=== PATIENT | female | born 2000 | race Caucasian/White ===

== ENCOUNTER 2021-12-27 20:59 | Emergency (ER) | payer SELFPAY ==
--- NOTE | ~2021-12-27 | XR_ITS ---
EXAMINATION: XR chest 2V DATE: 12/27/2021 23:37 INDICATION: Cough. Sore throat. TECHNIQUE: Frontal and lateral views of the chest were obtained. COMPARISON: None. FINDINGS: The chest demonstrates clear lungs without pneumonia, pleural effusion, or pneumothorax. Th e heart size is normal. IMPRESSION: 1. No acute cardiopulmonary disease. Reviewed, dictated and finalized at location A.
[2021-12-27 21:08] VITALS: BP 134/75; PULSE 95; RESP 16; TEMP 36.9; O2SAT 99
--- NOTE | 2021-12-27 23:24 | ED.URI ---
HPI - URI/Sore Throat General Chief Complaint: Upper Respiratory Infection Stated Complaint: cough, headache Time Seen by Provider: 12/27/21 23:03 Source: patient Mode of arrival: ambulatory Limitations: no limitations History of Present Illness HPI Narrative: Patient is a 21-year-old female who presents to the ED with c/o flu-like symptoms for the past 4 days. Patient reports having recent cough, congestion, sore throat, wheezing, headache, myalgias, fatigue which have progressively worsened over the last 4 days. 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 Denies any known fever. No abdominal pain, nausea, vomiting, urinary symptoms, chest pain, shortness of breath. Patient is COVID and flu vaccinated. Related Data Allergies Allergy/AdvReac Type Severity Reaction Status Date / Time No Known Allergies Allergy Verified 12/28/21 00:48 Review of Systems Review of Systems: CONSTITUTIONAL: Reports fatigue. Denies fever, chills. ENT: Reports rhinorrhea, congestion, sore throat. Denies otalgia. CARDIOVASCULAR: Denies chest pain. RESPIRATORY: Reports cough, wheezing. Denies dyspnea. GASTROINTESTINAL: Denies abdominal pain, nausea, vomiting, or diarrhea. GENITOURINARY: Denies dysuria or hematuria. MUSCULOSKELETAL: Reports myalgias. Denies back pain, joint pain. NEUROLOGIC: Reports BRIGGS. Denies numbness, or weakness. All systems reviewed & are unremarkable except as noted in HPI and below PMFSH Past Medical History Medical History (Updated 12/28/21 @ 01:43 by Madhuri Nelson PA-C) No pertinent past medical history Surgical History Surgical History (Updated 12/28/21 @ 01:43 by Madhuri Nelson PA-C) No pertinent past surgical history Social History Social History (Updated 12/28/21 @ 01:44 by Madhuri Nelson PA-C) Smoking status: Never smoker Exam Narrative: GENERAL: Well appearing, well-nourished, non-toxic, in no acute distress. HEAD: Normocephalic, atraumatic. NOSE: Normal, no drainage. THROAT: Pharynx clear, no exudate. Minimal erythema to posterior pharynx. MMs moist. NECK: Supple. No adenopathy, no masses. RESPIRATORY: Airway patent, respirations nonlabored. Clear to auscultation bilaterally, no rales, rhonchi, wheezing. CARDIOVASCULAR: Regular rate and rhythm without murmurs, rubs, or gallops. Radial pulses 2+ and equal bilaterally. MUSCULOSKELETAL: Moves all extremities. Strength/ROM intact without gross deformities. SKIN: Warm, dry, normal color. No rashes. NEURO: A&O X3. Speech clear. Cranial nerves II-XII grossly intact. Steady gait. No ataxic movements. PSYCHIATRIC: Appropriate mood and affect. Normal interaction. Course Vital Signs Vital signs: Vital Signs Temperature 98.4 F 12/27/21 21:08 Pulse Rate 95 12/27/21 21:08 Respiratory Rate 16 12/27/21 21:08 Blood Pressure 134/75 12/27/21 21:08 Pulse Oximetry 99 12/27/21 21:08 Temperature 98.4 F 12/27/21 21:08 Pulse Rate 92 12/27/21 23:28 Respiratory Rate 18 12/27/21 23:28 Blood Pressure 129/84 12/27/21 23:28 Pulse Oximetry 98 12/27/21 23:35 MDM - URI/Sore Throat MDM Narrative Medical decision making narrative: Patient presented to ED with 4-day history of flulike symptoms. Vital signs stable upon arrival. Afebrile. Clinical examination fairly unremarkable. No wheezing heard on auscultation. Laboratory evaluation notable for minimal elevation of white blood cell count at 10.4. No anemia. No significant electrolyte abnormality. Good kidney function. No transaminitis. UA without signs of infection. EKG without acute findings. Chest x-ray without signs of pneumonia. Influenza negative. COVID-negative. Strep negative. Patient feeling better with Toradol. Discussed findings with her and that she likely has a viral upper respiratory infection. Recommended she continue taking [id number] cough and cold medicines. Rubio Lentz will be sent to pharmacy for cough. Advised patient to
[2021-12-27 23:28] VITALS: BP 129/84; PULSE 92; RESP 18; O2SAT 99
[2021-12-27 23:35] VITALS: O2SAT 98
--- NOTE | 2021-12-27 23:39 | ECG_ITS ---
Measurements Intervals [place] Rate: 93 P: 11 [place]: 152 QRS: 74 QRSD: 86 T: 36 QT: 352 QTc: 438 Interpretive Statements SINUS RHYTHM NO PREVIOUS ECG AVAILABLE FOR COMPARISON Electronically Signed On 12-28-2021 20:46:08 CDT by Barbi Zhao M.D.
[2021-12-27 23:54] LABS: Basophils Percent Auto 0.3 % (0.2-1.2); Eosinophils Absolute Auto 0.6 K/mm3 (0-0.3); Eosinophils Percent Auto 5.5 % (0-4.4); Hematocrit 38.1 % (37.0-47.0); Hemoglobin 12.3 g/dL (12.0-15.0); Immature Granulocyte Absolute 0.03 K/mm3 (0.00-0.031); Immature Granulocyte Percent A 0.3 % (0-0.5); Lymphocytes Absolute Auto 2.56 K/mm3 (0.9-3.2); Lymphocytes Percent Auto 24.5 % (18.3-44.2); Mean Corpuscular HGB Conc 32.3 g/dl (32-36); Mean Corpuscular Hemoglobin 28.7 pg (26-34); Mean Corpuscular Volume 88.8 fl (80-100); Mean Platelet Volume 9.5 fl (7.4-10.4); Monocytes Absolute Auto 0.9 K/mm3 (0.1-0.6); Monocytes Percent Auto 8.2 % (2.6-8.5); Neutrophils Absolute Auto 6.4 K/mm3 (1.3-6.7); Neutrophils Percent Auto 61.2 % (45.5-73.1); Platelet Count Result 277 k/mm3 (150-375); Red Blood Count 4.29 M/mm3 (4.2-5.4); Red Cell Distribution Width 12.8 % (11.5-14.5); White Blood Count 10.4 K/mm3 (4.5-10.0)
[2021-12-28 00:14] LABS: Alanine Aminotransferase 19 U/L (4-35); Albumin Level 4.1 g/dL (3.5-5.1); Alkaline Phosphatase 65 U/L (38-126); Anion Gap 7 mmol/L (8-16); Aspartate Amino Transferase 31 U/L (14-36); Bilirubin,Total 0.5 mg/dL (0.2-1.3); Blood Urea Nitrogen 11 mg/dL (7-17); Calcium 8.6 mg/dL (8.4-10.2); Carbon Dioxide 28 mmol/L (22-30); Chloride 103 mmol/L (98-107); Estimated CRCL calculation 153 ml/min; Estimated Glomerular Filt Rate > 60; Glucose 97 mg/dL (65-110); Potassium 3.7 mmol/L (3.4-5.0); Sodium 138 mmol/L (137-145)
[2021-12-28 00:29] LABS: Add Urine Microscopic? YES; Appearance Urine Clear (Clear); Bilirubin Urine Negative (Negative); Blood Urine 2+ (Negative); Color Urine Yellow (Yellow); Glucose Urine UA Negative (Negative); Ketones Urine Negative (Negative); Leukocyte Esterase Ur Negative LEU/UL (Negative); Mucus Urine Rare /lpf; Nitrate Urine Negative (Negative); Protein Urine Negative (Negative); Specific Grav Ur 1.024 (1.001-1.035); Squamous Epithelial Cell Urine Few /hpf (Few); Urobilinogen Urine Negative mg/dL (<2.0); WBC Urine 0-3 /hpf
[2021-12-28 00:34] LABS: Influenza A QL RT-PCR Negative (Negative); Influenza B QL RT-PCR Negative (Negative); SARS-CoV-2 RNA PCR Negative
[2021-12-28] MEDS: KETOROLAC (*BKC) 60 MG/2 ML VIAL IM (00:49)
[2021-12-28 01:00] VITALS: BP 125/64; PULSE 87; RESP 18; O2SAT 99
[2021-12-28 02:07] VITALS: BP 128/75; PULSE 80; RESP 18; O2SAT 100
== END 2021-12-28 02:08 | disposition home or self-care (01) ==
PROVIDERS: Physician Assistant; Emergency Provider Family Medicine
DX: J06.9 Acute upper respiratory infection, unspecified (principal); Z20.822 Contact with and (suspected) exposure to COVID-19
CPT/HCPCS: 36415; 71046; 80053; 81001; 81025; 85025; 87081; 87502; 87880; 93005; 96372; 99283; C9803; J1885; U0003; U0005